=== PATIENT | male | born 1945 | race Caucasian/White ===

== ENCOUNTER 2016-08-27 22:49 | Observation (INO) | payer OTHER ==
--- NOTE | ~2016-08-27 | DS ---
Discharge Summary [facility] [address] [place]. [address] NAME: AN RAM : 43 STATUS : DIS IN PAT#: [id number] AGE: 71 ADM/REG DATE : 08/27/16 MR#: [id number] REPORT SERV DATE: 08/30/16 DICTATED BY: DATE: REPORT STATUS : Draft TRANSCRIBED BY: MODL DATE: 08/29/16 ADMISSION DATE: 08/27/2016 DISCHARGE DATE: 08/29/2016 The patient was admitted to the [facility]. ATTENDING DOCTOR: Dr. Lawrence Gautam and Dr. Gopi Yeung. DISCHARGE DIAGNOSES: 1. Functional abdominal pain. 2. Somatoform mood disorder. 3. Generalized anxiety disorder. 4. Chronic obstructive pulmonary disease - oxygen dependent at baseline. 5. Mild dementia. 6. History of hyponatremia due to SIADH and diuretic therapy - discharge sodium value 133. 7. Chronic kidney disease, stage II. 8. Obstructive sleep apnea and obesity hypoventilation syndrome. 9. Coronary artery disease. 10.History of atrial fibrillation with ablation and pacemaker. 11.History of prostate cancer with prior radiation. 12.Chronic thrombocytopenia - discharge platelet count 133. 13.Hypertension - controlled. 14.History of deep vein thrombosis on chronic anticoagulation. IMAGING STUDIES: Include a mesenteric Doppler 08/28 showing no Doppler evidence for significant stenosis of the celiac artery or superior mesenteric artery. Exam difficult due to the patient's inability to lay still, and obese habitus. Please also reference a [facility] records for additional GI imaging including CT abdomen and pelvis with no acute abnormalities, chest x-ray negative. Urinalysis negative. Troponin negative. Urine drug screen positive for barbiturates and opioids. Normal white blood cell count. Normal liver enzymes. Normal BNP. BRIEF HISTORY: For full details, please see the previously dictated history of present illness by Dr. Lawrence Gautam. Briefly, this is a 71-year-old white male with known chronic abdominal pain suspected due to somatoform disorder as he has had multiple GI evaluations in the past without specific etiology for his functional abdominal pain. He was seen at the [facility] Emergency Department on 08/28, complaining of severe abdominal pain, abdominal distention, bloating, loose stools for the past one to two weeks, relieved only by morphine, and the patient was transferred to [facility] for further inpatient evaluation. HOSPITAL COURSE: The patient's pain was easily relieved with IV pain medications. The only additional GI evaluation ordered here was a mesenteric Doppler ultrasound, which was negative for celiac stenosis. With improved pain control, the patient's other symptoms of nausea and vomiting resolved. He was not observed to have any emesis while here. Similarly was not observed to have any loose stools while here. When I saw the patient on the , he Discharge Summary [facility] [address] [facility] [address]. [place]. [address] NAME: AN RAM : 43 STATUS : DIS IN PAT#: [id number] AGE: 71 ADM/REG DATE : 08/27/16 MR#: [id number] REPORT SERV DATE: 08/30/16 DICTATED BY: DATE: REPORT STATUS : Draft TRANSCRIBED BY: MODAidan DATE: 08/29/16 reported feeling well with no abdominal pain and the ability to tolerate lunch. He was requesting to be discharged to home. This was despite also saying "I am falling to pieces little body", with a smile on his face. The patient's Lasix was held during the admission and he was fluid restricted with up trend in sodium from 129-133. He was asymptomatic from hyponatremia, and was requested that his Lasix be re-initiated for discharge. The rationale for folding it was reviewed with him, particularly that he also had no evidence of peripheral edema despite multiple complaints of thigh edema and abdominal wall edema (that were not present on examination). His Lasix will be re-initiated for home and he is to follow up with his outpatient primary care provider, Dr. Hernández, in [place], [place] within the week for a repeat basic metabolic panel. All of his other home medications were continued per prior regimen. He states that he has narcotics at home and did not request any additional for discharge. DISCHARGE DISPOSITION: To home in the care of his family with no specific activity or dietary restrictions aside from a cardiac diet for comorbidities. He states he already has home health and that will be resumed through his primary care provider. He should continue to use home oxygen per his prior requirements. He will need to follow up with his primary care provider within a week for a repeat basic metabolic panel and following of sodium. DISCHARGE MEDICATIONS: Include: 1. Eliquis 5 mg p.o. twice a day. 2. Carvedilol 12.5 mg p.o. twice a day. 3. Pepcid 20 mg p.o. daily. 4. Proscar 5 mg p.o. daily. 5. Luvox 50 mg p.o. daily. 6. Imdur 60 mg p.o. daily. 7. Cozaar 50 mg p.o. daily. 8. Zaroxolyn 5 mg p.o. daily. 9. Lasix 40 mg p.o. daily. 10.Protonix 40 mg p.o. daily. 11.MiraLAX one packet p.o. twice a day. 12.Simvastatin 40 mg p.o. at bedtime. 13.Flomax 0.4 mg p.o. daily. 14.Hydrocodone/acetaminophen 7.5/325 mg one tablet p.o. every eight hours as needed. 15.Potassium chloride 20 mEq p.o. three times a day. 16.Phenergan 25 mg p.o. every six hours as needed. 17.Ambien 10 mg p.o. at bedtime. 18.Klonopin 0.5 mg p.o. daily. 19.Bentyl 10 mg p.o. every six hours p.r.n. abdominal pain. 30 minutes was spent in completion of the discharge summary. Discharge Summary [address] [address] NAME: AN RAM : 43 STATUS : DIS IN PAT#: [id number] AGE: 71 ADM/REG DATE : 08/27/16 MR#: [id number] REPORT SERV DATE: 08/30/16 DICTATED BY: DATE: REPORT STATUS : Draft TRANSCRIBED BY: ALTON DATE: 08/29/16 NARESH/ALTON Gopi Yeung M.D. / [id number] CC: Tony Capone M.D.
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
[~2016-08-27 22:49] MED LIST: ACET500CAP PO; AMB10 PO; AMBIEN CR12.5 MG PO; B121000P IM; BENTYL10 PO; COREG12 PO; COUMADIN3 MG PO; COUMADIN4 MG PO; COZ50 PO; CYANO1000T PO; DEMA10T PO; DUONEB INH; DURA25 TOP; ELIQUIS 5 MG TAB5 MG PO; ENDOCET1 TA1 PO; ENDOCET1 TAB PO; FERROUS SULF325 M1 PO; FERROUS SULFATE PO; FISH-EPA1000 MG PO; FLOMAX4 PO; IMDUR60 PO; KLONO5 PO; KLOR-CON 1010 MEQ PO; KLOR-CON M2020 MEQ PO; L20 PO; L40 PO; LEVAQUIN5T PO; LEVSINTAB PO; LIBRAX PO; LUVOX100 PO; LUVOX50 PO; LYRICA75 PO; MAGOX4 PO; MIRALAXPKT PO; MYLICON 40 MG T40 MG PO; NEUR300 PO; NITROSTAT0.4 MG SL; NORCO1 TA2 PO; NORCO1 TAB PO; PEP20 PO; PR25 PO; PRADAXA150 MG PO; PROAIR HFA INH; PROSCAR5 PO; PROTONIX PO; REG PO; SENTAB PO; SUCR PO; V5 PO; VIT D; VITAMIN D31000 UNIT PO; VITAMIN D400 UNI1 PO; Vitamin B-Twelve IM; Z5 PO; ZOCOR40 PO
[2016-08-28] MEDS ORDERED: Z5 PO (03:27)
[2016-08-28] MEDS ORDERED: KLONO5 PO (03:30)
[2016-08-28] MEDS ORDERED: PEP20 PO (03:32)
[2016-08-28] MEDS ORDERED: BENTYL10 PO (03:36)
[2016-08-28 06:35] LABS: BASOPHILS 0.1 %; BASOPHILS ABSOLUTE 0.01 10/3/uL (0.0-0.16); EOSINOPHILS 1.5 %; EOSINOPHILS ABSOLUTE 0.11 10/3/uL (0.0-0.53); HEMATOCRIT 34.1 % (40.0-51.0); HEMOGLOBIN 12.1 g/dL (13.6-17.8); IMMATURE GRANULOCYTES 0.3 %; IMMATURE GRANULOCYTES ABSOLUTE 0.02 10/3/uL (0.0-0.11); LYMPHOCYTES 21.4 %; LYMPHOCYTES ABSOLUTE 1.54 10/3/uL (0.67-4.30); MANUAL DIFF NO %; MEAN CORPUS HGB CONC 35.5 g/dL (32.0-36.0); MEAN CORPUSCULAR HEMOGLOB 31.5 pg (26.0-34.0); MEAN CORPUSCULAR VOLUME 88.8 fL (80-100); MONOCYTES 8.3 %; NEUTROPHILS 68.4 %; NEUTROPHILS ABSOLUTE 4.91 10/3/uL (2.02-8.40); PLATELET COUNT 143 10/3/uL (150-400); RBC DISTRIBUTION WIDTH 12.6 % (12.0-16.0); RED CELL COUNT 3.84 10/6/uL (4.7-6.1); WHITE BLOOD CELLS 7.2 10/3/uL (4.5-10.5)
[2016-08-28 06:49] LABS: A/G RATIO 1.1 (0.7-1.9); ALBUMIN 3.4 G/DL (3.5-5.0); ALKALINE PHOSPHATASE 71 U/L (45-117); CALCIUM, SERUM 8.6 MG/DL (8.5-10.4); CO2 (CARBON DIOXIDE) 36 MMOL/L (24-34); CREATININE 1.22 MG/DL (0.70-1.30); GFR AFRICAN AMERICAN 68 ML/MIN (>=60); GFR NON AFRICAN AMERICAN 58 ML/MIN (>=60); GLOBULIN 3.1 G/DL (2.5-4.1); GLUCOSE, SERUM 105 MG/DL (60-99); POTASSIUM, SERUM 3.6 MMOL/L (3.5-5.3); SGOT(AST) 27 U/L (5-40); SGPT(ALT) 35 U/L (5-65); TOTAL BILIRUBIN 0.9 MG/DL (0-1.2); TOTAL PROTEIN 6.5 G/DL (6.0-8.5)
[2016-08-28 06:52] LABS: BUN (BLOOD UREA NITROGEN) 24 MG/DL (6-23); CHLORIDE, SERUM 85 MMOL/L (96-112); SODIUM, SERUM 130 MMOL/L (135-148)
[2016-08-28 11:38] LABS: BUN (BLOOD UREA NITROGEN) 25 MG/DL (6-23); CHLORIDE, SERUM 89 MMOL/L (96-112); CO2 (CARBON DIOXIDE) 34 MMOL/L (24-34); CREATININE 1.22 MG/DL (0.70-1.30); GFR AFRICAN AMERICAN 68 ML/MIN (>=60); GFR NON AFRICAN AMERICAN 58 ML/MIN (>=60); GLUCOSE, SERUM 113 MG/DL (60-99); POTASSIUM, SERUM 3.7 MMOL/L (3.5-5.3); SODIUM, SERUM 129 MMOL/L (135-148)
[2016-08-28 14:07] LABS: ASCORBIC ACID (UR NOT ORDER) NEG (NEG); BILIRUBIN, URINE NEGATIVE (NEG); KETONE, URINE NEGATIVE (NEG); LEUKOCYTE ESTERASE(NOT OR NEG (NEG); WBC (NOT ORDERED) (RFLEX) < 1 (0-5)
[2016-08-28 17:11] LABS: BUN (BLOOD UREA NITROGEN) 23 MG/DL (6-23); CHLORIDE, SERUM 89 MMOL/L (96-112); CO2 (CARBON DIOXIDE) 33 MMOL/L (24-34); CREATININE 1.17 MG/DL (0.70-1.30); GFR AFRICAN AMERICAN 71 ML/MIN (>=60); GFR NON AFRICAN AMERICAN 61 ML/MIN (>=60); GLUCOSE, SERUM 124 MG/DL (60-99); SODIUM, SERUM 130 MMOL/L (135-148)
[2016-08-28 23:24] LABS: BUN (BLOOD UREA NITROGEN) 24 MG/DL (6-23); CALCIUM, SERUM 8.6 MG/DL (8.5-10.4); CHLORIDE, SERUM 86 MMOL/L (96-112); CO2 (CARBON DIOXIDE) 37 MMOL/L (24-34); CREATININE 1.24 MG/DL (0.70-1.30); GFR AFRICAN AMERICAN 66 ML/MIN (>=60); GFR NON AFRICAN AMERICAN 57 ML/MIN (>=60); GLUCOSE, SERUM 101 MG/DL (60-99); POTASSIUM, SERUM 3.7 MMOL/L (3.5-5.3); SODIUM, SERUM 131 MMOL/L (135-148)
[2016-08-29 07:09] LABS: BASOPHILS 0.4 %; BASOPHILS ABSOLUTE 0.03 10/3/uL (0.0-0.16); EOSINOPHILS 0.9 %; EOSINOPHILS ABSOLUTE 0.06 10/3/uL (0.0-0.53); HEMATOCRIT 31.3 % (40.0-51.0); HEMOGLOBIN 10.9 g/dL (13.6-17.8); IMMATURE GRANULOCYTES 0.1 %; IMMATURE GRANULOCYTES ABSOLUTE 0.01 10/3/uL (0.0-0.11); LYMPHOCYTES 20.1 %; LYMPHOCYTES ABSOLUTE 1.35 10/3/uL (0.67-4.30); MEAN CORPUS HGB CONC 34.8 g/dL (32.0-36.0); MEAN CORPUSCULAR HEMOGLOB 30.8 pg (26.0-34.0); MEAN CORPUSCULAR VOLUME 88.4 fL (80-100); MEAN PLATELET VOLUME 8.8 fL (9.2-13.0); MONOCYTES 6.1 %; MONOCYTES ABSOLUTE 0.41 10/3/uL (0.21-1.20); NEUTROPHILS 72.4 %; NEUTROPHILS ABSOLUTE 4.86 10/3/uL (2.02-8.40); PLATELET COUNT 133 10/3/uL (150-400); RED CELL COUNT 3.54 10/6/uL (4.7-6.1); WHITE BLOOD CELLS 6.7 10/3/uL (4.5-10.5)
[2016-08-29 07:10] LABS: MANUAL DIFF NO %
[2016-08-29 07:21] LABS: BUN (BLOOD UREA NITROGEN) 24 MG/DL (6-23); CALCIUM, SERUM 8.6 MG/DL (8.5-10.4); CHLORIDE, SERUM 90 MMOL/L (96-112); CO2 (CARBON DIOXIDE) 34 MMOL/L (24-34); CREATININE 1.27 MG/DL (0.70-1.30); GFR AFRICAN AMERICAN 65 ML/MIN (>=60); GFR NON AFRICAN AMERICAN 56 ML/MIN (>=60); GLUCOSE, SERUM 127 MG/DL (60-99); POTASSIUM, SERUM 3.5 MMOL/L (3.5-5.3); SODIUM, SERUM 133 MMOL/L (135-148)
== END 2016-08-29 15:27 | disposition home or self-care (01) ==
LOC: 5SO 22:49
PROVIDERS: Internal Medicine; Student in an Organized Health Care Education/Training Program
DX: R10.9 Unspecified abdominal pain (principal); F45.9 Somatoform disorder, unspecified; R33.9 Retention of urine, unspecified; M54.9 Dorsalgia, unspecified; I12.9 Hypertensive chronic kidney disease with stage 1 through stage 4 chronic kidney disease, or unspecified chronic kidney disease; J44.9 Chronic obstructive pulmonary disease, unspecified; F41.1 Generalized anxiety disorder; F03.90 Unspecified dementia, unspecified severity, without behavioral disturbance, psychotic disturbance, mood disturbance, and anxiety; I25.10 Atherosclerotic heart disease of native coronary artery without angina pectoris; I48.91 Unspecified atrial fibrillation; D69.6 Thrombocytopenia, unspecified; N18.3 Chronic kidney disease, stage 3 (moderate); G47.33 Obstructive sleep apnea (adult) (pediatric); E87.1 Hypo-osmolality and hyponatremia; G89.29 Other chronic pain; Z99.89 Dependence on other enabling machines and devices; Z85.46 Personal history of malignant neoplasm of prostate; Z86.718 Personal history of other venous thrombosis and embolism; Z90.49 Acquired absence of other specified parts of digestive tract; Z98.890 Other specified postprocedural states; Z82.3 Family history of stroke; Z88.5 Allergy status to narcotic agent; Z88.8 Allergy status to other drugs, medicaments and biological substances; Z79.899 Other long term (current) drug therapy
CPT/HCPCS: 80048; 80053; 81001; 83605; 83735; 83880; 84100; 85025; 93005; 93975; 96374; 96375; 96376; A9270-GY; G0378; J2405; J2550

== ENCOUNTER 2016-09-07 17:03 | Observation (INO) | payer OTHER ==
--- NOTE | ~2016-09-07 | DS ---
Discharge Summary [facility] [address] [place]. [address] NAME: AN RAM : 43 STATUS : DIS Renée PAT#: [id number] AGE: 71 ADM/REG DATE : 09/07/16 MR#: [id number] REPORT SERV DATE: 09/09/16 DICTATED BY: JOHN EDWARDS DATE: 09/09/16 REPORT STATUS : Draft TRANSCRIBED BY: MODAidan DATE: 09/09/16 ADMISSION DATE: 09/07/2016 DISCHARGE DATE: 09/09/2016 DISCHARGE DIAGNOSES: 1. Chronic abdominal pain with irritable bowel syndrome. 2. History of somatoform-mood disorder and functional abdominal discomfort. 3. Diarrhea, resolved. 4. Chronic hyponatremia with a history of syndrome of inappropriate antidiuretic hormone, most recent sodium 129. 5. BPH and urinary retention, which has improved. 6. Hypothyroidism. Most recent TSH 2.230. 7. History of pacemaker, on chronic anticoagulation with Eliquis therapy. DISCHARGE MEDICATIONS: Eliquis 5 mg p.o. twice a day, carvedilol 12.5 mg p.o. twice a day, Bentyl 20 mg p.o. with meals, prescription was written for this. Proscar 5 mg daily, Luvox 50 mg three times a day, Lasix 40 mg daily, Imdur ER 60 mg daily, Cozaar 50 mg daily, Zocor 40 mg at bedtime, Flomax 0.4 mg daily, Ambien 10 mg at bedtime, potassium chloride 20 mEq twice a day. I have instructed him to stop his Zaroxolyn as it could be contributing further to his chronic hyponatremia. HISTORY OF PRESENT ILLNESS: This is a pleasant 71-year-old white male who presented with abdominal pain and diarrhea to [facility] Emergency Room. Please see initial H and P of Dr. Hema Cuevas. This patient was admitted to the Hospitalist Service for further evaluation and treatment. CONSULTANTS DURING THIS ADMISSION: 1. [facility]. 2. TOPHER Calabrese. 3. Jason Garcia M.D. PROCEDURES AND IMAGING DURING THIS ADMISSION: A CT of the abdomen and pelvis showing no acute abnormality within the abdomen or pelvis; diverticulosis, but no diverticulitis. A renal ultrasound showed minimal right renal cyst, but otherwise negative ultrasound exam of the kidneys. CONTINUATION OF HOSPITAL COURSE: The patient was seen by [facility], but they did not recommend any further procedures during this admission. Added Bentyl to his regimen, as the patient had been Levsin in the past and had not seen any improvement with that. He exhibited some signs of urinary retention, but on postvoid residual bladder scans, he has not exhibited any high residuals. Also, Urology had been consulted for evaluation of this and a PSA test was added to his lab work which came back at less than 0.05. In further discussion with the patient, he relates that once he stopped his hydrocodone, he felt like his symptoms improved rapidly and he was able to urinate freely and also his abdominal pain was significantly better. He has had a formed stool and is voiding freely in his urinal and is wishing to be discharged home. Discharge Summary [address] [address] NAME: AN RAM : 43 STATUS : DIS Renée PAT#: [id number] AGE: 71 ADM/REG DATE : 09/07/16 MR#: [id number] REPORT SERV DATE: 09/09/16 DICTATED BY: JOHN EDWARDS DATE: 09/09/16 REPORT STATUS : Draft TRANSCRIBED BY: MODL DATE: 09/09/16 DISCHARGE INSTRUCTIONS: He has followup scheduled with a new primary care, Dr. Smallwood on 09/26/2016, which I have instructed him to keep. He will follow up with [facility] in three to four weeks. He has a prescription written for Bentyl with meals. I have also instructed him to apply CARRIE hose to his lower extremities, as he does have edema and this would help to facilitate removal of the extra fluid. Questions were answered at bedside with he and his . He is agreement with this plan going forward. Please note greater than 30 minutes were spent on this discharge for medication teaching, followup planning, and further disposition. TRINY/MODL John Edwards NP / [id number] CC: MD Jewel Van II, M.D.
--- NOTE | ~2016-09-07 | CN ---
Consultation Report [facility] [address] [place]. [address] NAME: AN RAM : 43 STATUS : DIS Renée PAT#: [id number] AGE: 71 ADM/REG DATE : 09/07/16 MR#: [id number] REPORT SERV DATE: 09/10/16 DICTATED BY: Yina GRANGER DATE: 09/10/16 REPORT STATUS : Draft TRANSCRIBED BY: MODL DATE: 09/10/16 CONSULTATION NOTE DATE OF CONSULTATION: 09/09/2016 CHIEF COMPLAINT: Incomplete bladder emptying? with a history of prostate cancer. HISTORY OF PRESENT ILLNESS: Mr. Ram is a 71-year-old white male, who was admitted on 09/07/2016 with apparent history of chronic abdominal pain and new diarrhea. He was found to have an elevated PVR of several 100 mL that he believes induced by narcotics that had been given to him for this chronic pain. He states that since he stopped the narcotics he is better. His creatinine was 1.52. He has a history of prostate cancer treated with external-beam radiation and apparently sees Dr. Valverde in followup for that. During this admission, he was intermittently cathed for several elevated volumes, none of which were recorded, and he is seen on finasteride and tamsulosin. He states that he is doing well now. Last PSA detectable in the computer was less than 0.05 on 08/24/2015. PAST MEDICAL HISTORY: 1. Congestive heart failure. 2. COPD. 3. CAD, status post stents. 4. Dysrhythmia, status post pacemaker. 5. Peptic ulcer disease. 6. Irritable bowel syndrome and colonic angiodysplasia. 7. Chronic abdominal pain of unknown etiology. 8. History of prostate cancer in the past treated with external beam radiation. Exact time frame unknown. 9. Depression and anxiety. 10.Obstructive sleep apnea. 11.Atrial fibrillation. 12.Hypertension. 13.Perioperative DVT. PAST SURGICAL HISTORY: 1. Pacemaker placement. 2. IVC filter placement. 3. Left thumb surgery. 4. Small bowel obstruction. 5. Left knee surgery. 6. Cholecystectomy. 7. Cardiac ablation. CURRENT MEDICATIONS: Apixaban, Carvedilol, dicyclomine, finasteride, fluvoxamine, furosemide, isosorbide, losartan, simvastatin, tamsulosin, zolpidem. Consultation Report [facility] [address] [place]. [address] NAME: AN RAM : 43 STATUS : DIS Renée PAT#: [id number] AGE: 71 ADM/REG DATE : 09/07/16 MR#: [id number] REPORT SERV DATE: 09/10/16 DICTATED BY: Yina GRANGER DATE: 09/10/16 REPORT STATUS : Draft TRANSCRIBED BY: ALTON DATE: 09/10/16 ALLERGIES: CODEINE, CLONAZEPAM, LEVAQUIN. SOCIAL HISTORY: The patient is a previous smoker. Chews tobacco. Denies significant alcohol use. FAMILY HISTORY: Negative for urologic disease except for a sibling with kidney cancer. PHYSICAL EXAMINATION: GENERAL: An obese, 71-year-old white male, alert and oriented x3. VITAL SIGNS: Afebrile with normal vital signs. HEENT: Normocephalic, atraumatic. No respiratory distress. ABDOMEN: Protuberant, nontender, nondistended. No suprapubic distention. No CVA tenderness. : Normal external genitalia. Prostate exam not performed. LOWER EXTREMITIES: Showed minimal pitting edema. PERTINENT LABORATORY: Noted creatinine 1.52. IMPRESSION: 1. History of prostate cancer, status post external-beam radiation therapy. 2. History of elevated postvoid residual, possibly resolved post narcotic cessation. 3. Benign prostatic hypertrophy/bladder obstruction, managed with finasteride and tamsulosin. PLAN: 1. The patient's was to be discharged, so I had him checked a PSA that was less than 0.05 on 09/09/2016. 2. We also checked a postvoid residual which was acceptable at 116 mL. I am happy to see him in followup if necessary. Otherwise, he can see his urologist or the urologist of his choice. YONI/ALTON Yina Granger M.D. / [id number] CC: MD Jewel Van II, M.D.
--- NOTE | ~2016-09-07 | CN ---
Consultation Report [facility] [address] [place]. [address] NAME: AN RAM : 43 STATUS : ADM Renée PAT#: [id number] AGE: 71 ADM/REG DATE : 09/07/16 MR#: [id number] REPORT SERV DATE: 09/08/16 DICTATED BY: ISIDRA NGUYEN DATE: 09/08/16 REPORT STATUS : Draft TRANSCRIBED BY: MODAidan DATE: 09/08/16 GI CONSULTATION DATE OF CONSULTATION: 09/08/2016 REASON FOR CONSULTATION: Evaluation and management of irritable bowel syndrome, acute on chronic abdominal pain. HISTORY OF PRESENT ILLNESS: Mr. Ram is a 71-year-old male patient, who is known to Dr. Jason Garcia in the outpatient setting, who presented with the chief complaint of IBS, diarrhea on the . He has had a recent hospitalization on August 28, 2016 to August 29 for abdominal pain. We last saw him in the hospital on July of 2015 for acute on chronic abdominal pain. At that time, his complaints were suprapubic in nature with radiation to the groin and testicles with difficulty voiding. He tells me that this time, he has again had difficulty with voiding secondary to utilization of Lortab. He had become constipated he states and drank an excessive amount of prune juice the day prior to coming in, thus causing excessive diarrhea. Secondary to those complaints, he came into the hospital, was seen by Dr. Cuevas in the emergency room, and subsequently was admitted. He also carries a history of a diagnosis of somatoform mood disorder. He was hyponatremic when he came in. He has had some mild nausea, but no vomiting. He presently has had no more diarrhea since coming in. He states that his abdominal pain has improved. He has chronic dyspnea on exertion with chronic O2 usage. He has had multiple hospitalizations for the same complaints. He has had a very thorough GI workup. He has had two negative mesenteric ultrasounds. He has had a CT scan that was negative. He has had an EGD that was done on 08/21/2015, normal duodenum, normal antrum. He had a very small amount of food residue in his stomach and a hiatal hernia. His last colonoscopy was September 14, 2014. With findings on that exam, normal ileum, two polyps were removed and he had internal hemorrhoids. Presently, the patient is comfortable. He has no complaints of abdominal pain at this time at all. He states that he ate this morning and tolerated it well. I have discussed with him he has been trialed on Levsin before for his irritable bowel syndrome and did not do well on that. We will switch him to Bentyl and see if that gives him any relief. PAST MEDICAL HISTORY: Positive for acute on chronic abdominal pain with negative workup, positive for atrial fibrillation, pacemaker placement, coronary artery disease, status post stenting, gastric ulcer, CHF, IBS, insomnia, chronic pain, prostate cancer status post radiation, anemia, diabetes, B12 deficiency, chronic low back pain, small-bowel obstruction, anxiety, depression, and COPD with O2 dependence. PAST SURGICAL HISTORY: Cholecystectomy, pacemaker, cardiac stents, small-bowel resection, and left total knee replacement. FAMILY HISTORY: Father with history of colon cancer. SOCIAL HISTORY: , retired gasoline truck operator. Past use of cigarettes. No alcohol or Consultation Report [address] [address] NAME: AN RAM : 43 STATUS : ADM Renée PAT#: [id number] AGE: 71 ADM/REG DATE : 09/07/16 MR#: [id number] REPORT SERV DATE: 09/08/16 DICTATED BY: ISIDRA NGUYEN DATE: 09/08/16 REPORT STATUS : Draft TRANSCRIBED BY: ALTON DATE: 09/08/16 illicits. ALLERGIES: CODEINE, CLONAZEPAM, AND LEVAQUIN. HOME MEDICATIONS: Eliquis, Coreg, Proscar, Librax, Lasix, Hampton, Imdur, Cozaar, Zaroxolyn, potassium, Zocor, Flomax, and Ambien. REVIEW OF SYSTEMS: A ten-point review of systems obtained. Pertinent positives addressed in the history of present illness. PHYSICAL EXAMINATION: VITAL SIGNS: Temperature is 97.8, pulse 70, respirations of 18, and blood pressure 100/57. NEURO: Reveals an alert, male, sitting up in the chair with no focal deficits. GENERAL: Cooperative, in no apparent distress. Awake, alert, and oriented x3. HEAD, EARS, EYES, NOSE, AND THROAT: Anicteric. Pupils are equal, round, and reactive to light and accommodation. Normocephalic and atraumatic. NECK: No JVD. No palpable nodes. LUNGS: Diminished throughout. Normal respiratory effort exhibited. Chronic O2 at 2 L. CARDIOVASCULAR SYSTEM: Presently regular rate and rhythm. ABDOMEN: Soft, round, obese. No tenderness to palpation elicited on exam. He has no organomegaly. Active bowel sounds in all four quadrants. SKIN: Warm, dry, and intact. PERTINENT LABORATORY DATA: Sodium is 128, potassium 4.1. BUN is 26 and creatinine 1.3. White count is 6.2, hemoglobin 11.1, hematocrit 31.3, and platelet count is 149. INR is 1.3. BNP is 82. TSH is 2.230. ASSESSMENT: 1. Acute on chronic abdominal pain with a history of irritable bowel syndrome, mainly constipation type. 2. Diarrhea, which was self-induced with prune juice, excessive intake. 3. Chronic kidney disease. 4. Urinary retention with history of prostate cancer. 5. Chronic obstructive pulmonary disease with chronic O2 dependence. PLAN: At present, no plans for any further GI workup. We would recommend either Librax or Bentyl as he has been on Levsin with zero results and improvement in his abdominal complaints. He relates majority of his problem is secondary to Lortab causing urinary retention and then pain, as well as constipation. He can follow with Dr. Garcia or nurse practitioner, Yaa Childers in two to four weeks for further evaluation. DG/MODL Consultation Report [address] [place]. [address] NAME: AN RAM : 43 STATUS : ADM Renée PAT#: [id number] AGE: 71 ADM/REG DATE : 09/07/16 MR#: [id number] REPORT SERV DATE: 09/08/16 DICTATED BY: ISIDRA NGUYEN DATE: 09/08/16 REPORT STATUS : Draft TRANSCRIBED BY: ALTON DATE: 09/08/16 TOPHER Calabrese / [id number] CC: Yunior Vazquez Jr, MD Jung Park, M.D.
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
[2016-09-07 16:55] LABS: BASOPHILS 0.2 %; BASOPHILS ABSOLUTE 0.01 10/3/uL (0.0-0.16); EOSINOPHILS ABSOLUTE 0.06 10/3/uL (0.0-0.53); ER CBC TAT 0 Hrs 11 Mins; HEMATOCRIT 31.2 % (40.0-51.0); HEMOGLOBIN 11.2 g/dL (13.6-17.8); LYMPHOCYTES 12.1 %; LYMPHOCYTES ABSOLUTE 0.75 10/3/uL (0.67-4.30); MANUAL DIFF NO %; MEAN CORPUS HGB CONC 35.9 g/dL (32.0-36.0); MEAN CORPUSCULAR HEMOGLOB 31.4 pg (26.0-34.0); MEAN CORPUSCULAR VOLUME 87.4 fL (80-100); MEAN PLATELET VOLUME 8.6 fL (9.2-13.0); MONOCYTES 14.2 %; MONOCYTES ABSOLUTE 0.88 10/3/uL (0.21-1.20); NEUTROPHILS 72.5 %; NEUTROPHILS ABSOLUTE 4.51 10/3/uL (2.02-8.40); PLATELET COUNT 141 10/3/uL (150-400); RBC DISTRIBUTION WIDTH 12.7 % (12.0-16.0); RED CELL COUNT 3.57 10/6/uL (4.7-6.1); WHITE BLOOD CELLS 6.2 10/3/uL (4.5-10.5)
[2016-09-07 17:01] LABS: INTERNATIONAL NORMAL RATI 1.2 UNITS (-); PROTIME (NOT ORD) 15.3 SEC (12.0-14.5)
[2016-09-07 17:02] LABS: PARTIAL THROMBO TIME 33.9 SEC (22.5-37.2)
[2016-09-07 17:07] LABS: ASCORBIC ACID (UR NOT ORDER) NEG (NEG); BILIRUBIN, URINE NEGATIVE (NEG); ER URINALYSIS TAT 0 Hrs 09 Mins; KETONE, URINE NEGATIVE (NEG); LEUKOCYTE ESTERASE(NOT OR NEG (NEG); NITRITE (URINE) NEG (NEG); WBC (NOT ORDERED) (RFLEX) 1 (0-5)
[2016-09-07 17:10] LABS: ALBUMIN 3.7 G/DL (3.5-5.0); ALKALINE PHOSPHATASE 75 U/L (45-117); BUN (BLOOD UREA NITROGEN) 24 MG/DL (6-23); CALCIUM, SERUM 8.6 MG/DL (8.5-10.4); CHEST PAIN PROFILE TAT 0 Hrs 26 Mins; CHLORIDE, SERUM 82 MMOL/L (96-112); CO2 (CARBON DIOXIDE) 34 MMOL/L (24-34); CREATININE 1.22 MG/DL (0.70-1.30); DIRECT BILIRUBIN 0.2 MG/DL (0.0-0.4); GFR AFRICAN AMERICAN 68 ML/MIN (>=60); GFR NON AFRICAN AMERICAN 58 ML/MIN (>=60); GLUCOSE, SERUM 112 MG/DL (60-99); INDIRECT BILIRUBIN(NOT ORDER) 0.3 MG/DL (0.1-0.9); POTASSIUM, SERUM 4.1 MMOL/L (3.5-5.3); SGOT(AST) 28 U/L (5-40); SGPT(ALT) 35 U/L (5-65); SODIUM, SERUM 126 MMOL/L (135-148); TOTAL BILIRUBIN 0.5 MG/DL (0-1.2); TOTAL PROTEIN 6.5 G/DL (6.0-8.5); TROPONIN I <0.02 NG/ML (<0.05)
[2016-09-08 04:28] LABS: BASOPHILS 0.2 %; BASOPHILS ABSOLUTE 0.01 10/3/uL (0.0-0.16); EOSINOPHILS 1.3 %; EOSINOPHILS ABSOLUTE 0.08 10/3/uL (0.0-0.53); HEMATOCRIT 31.3 % (40.0-51.0); HEMOGLOBIN 11.1 g/dL (13.6-17.8); IMMATURE GRANULOCYTES 0.2 %; IMMATURE GRANULOCYTES ABSOLUTE 0.01 10/3/uL (0.0-0.11); LYMPHOCYTES 16.9 %; LYMPHOCYTES ABSOLUTE 1.05 10/3/uL (0.67-4.30); MEAN CORPUS HGB CONC 35.5 g/dL (32.0-36.0); MEAN CORPUSCULAR HEMOGLOB 31.4 pg (26.0-34.0); MEAN CORPUSCULAR VOLUME 88.7 fL (80-100); MEAN PLATELET VOLUME 8.6 fL (9.2-13.0); MONOCYTES 10.6 %; MONOCYTES ABSOLUTE 0.66 10/3/uL (0.21-1.20); NEUTROPHILS 70.8 %; NEUTROPHILS ABSOLUTE 4.42 10/3/uL (2.02-8.40); PLATELET COUNT 149 10/3/uL (150-400); RBC DISTRIBUTION WIDTH 12.9 % (12.0-16.0); RED CELL COUNT 3.53 10/6/uL (4.7-6.1); WHITE BLOOD CELLS 6.2 10/3/uL (4.5-10.5)
[2016-09-08 04:29] LABS: MANUAL DIFF NO %
[2016-09-08 04:33] LABS: INTERNATIONAL NORMAL RATI 1.3 UNITS (-); PARTIAL THROMBO TIME 33.8 SEC (22.5-37.2); PROTIME (NOT ORD) 15.8 SEC (12.0-14.5)
[2016-09-08 04:48] LABS: A/G RATIO 1.2 (0.7-1.9); ALBUMIN 3.5 G/DL (3.5-5.0); ALKALINE PHOSPHATASE 76 U/L (45-117); BUN (BLOOD UREA NITROGEN) 26 MG/DL (6-23); CALCIUM, SERUM 8.9 MG/DL (8.5-10.4); CHLORIDE, SERUM 85 MMOL/L (96-112); CO2 (CARBON DIOXIDE) 36 MMOL/L (24-34); GFR AFRICAN AMERICAN 63 ML/MIN (>=60); GFR NON AFRICAN AMERICAN 54 ML/MIN (>=60); GLUCOSE, SERUM 103 MG/DL (60-99); POTASSIUM, SERUM 4.1 MMOL/L (3.5-5.3); SGOT(AST) 27 U/L (5-40); SGPT(ALT) 32 U/L (5-65); SODIUM, SERUM 128 MMOL/L (135-148); TOTAL BILIRUBIN 0.6 MG/DL (0-1.2); TOTAL PROTEIN 6.5 G/DL (6.0-8.5)
[2016-09-09 04:54] LABS: CALCIUM, SERUM 9.2 MG/DL (8.5-10.4); CHLORIDE, SERUM 81 MMOL/L (96-112); CO2 (CARBON DIOXIDE) 37 MMOL/L (24-34); CREATININE 1.52 MG/DL (0.70-1.30); GFR AFRICAN AMERICAN 52 ML/MIN (>=60); GFR NON AFRICAN AMERICAN 45 ML/MIN (>=60); POTASSIUM, SERUM 3.4 MMOL/L (3.5-5.3); SODIUM, SERUM 129 MMOL/L (135-148)
[2016-09-09 04:55] LABS: BUN (BLOOD UREA NITROGEN) 34 MG/DL (6-23); GLUCOSE, SERUM 126 MG/DL (60-99)
[2016-09-09 11:20] LABS: PROSTATIC SPECIFIC AG < 0.05 NG/ML (0.0-6.5)
[2016-09-09] MEDS ORDERED: BENTYL20 PO (16:51)
== END 2016-09-09 17:11 | disposition home or self-care (01) ==
LOC: ER 17:03 → CDU1 20:07
PROVIDERS: Emergency Medicine; Hospitalist; Internal Medicine
DX: K58.9 Irritable bowel syndrome, unspecified (principal); F45.9 Somatoform disorder, unspecified; R19.7 Diarrhea, unspecified; E22.2 Syndrome of inappropriate secretion of antidiuretic hormone; F17.290 Nicotine dependence, other tobacco product, uncomplicated; N40.1 Benign prostatic hyperplasia with lower urinary tract symptoms; R33.8 Other retention of urine; Z79.01 Long term (current) use of anticoagulants; I11.0 Hypertensive heart disease with heart failure; I50.30 Unspecified diastolic (congestive) heart failure; Z95.0 Presence of cardiac pacemaker; Z85.46 Personal history of malignant neoplasm of prostate; F41.9 Anxiety disorder, unspecified; F32.9 Major depressive disorder, single episode, unspecified; G47.33 Obstructive sleep apnea (adult) (pediatric); I48.91 Unspecified atrial fibrillation; Z90.49 Acquired absence of other specified parts of digestive tract; Z88.5 Allergy status to narcotic agent; Z88.8 Allergy status to other drugs, medicaments and biological substances; Z98.890 Other specified postprocedural states; Z79.899 Other long term (current) drug therapy
CPT/HCPCS: 74176; 76775; 80048; 80053; 80076; 81001; 83605; 83690; 83735; 83880; 84153; 84443; 84484; 85025; 85610; 85730; 96374; 96375; 96376; 99285; A9270-GY; G0378; J1980

== ENCOUNTER 2016-10-10 21:07 | Emergency (ER) | payer OTHER ==
[2016-10-10 20:03] LABS: BASOPHILS 0.3 %; BASOPHILS ABSOLUTE 0.02 10/3/uL (0.0-0.16); EOSINOPHILS 1.4 %; HEMATOCRIT 31.2 % (40.0-51.0); HEMOGLOBIN 11.2 g/dL (13.6-17.8); LYMPHOCYTES 9.1 %; LYMPHOCYTES ABSOLUTE 0.66 10/3/uL (0.67-4.30); MANUAL DIFF NO %; MEAN CORPUS HGB CONC 35.9 g/dL (32.0-36.0); MEAN CORPUSCULAR HEMOGLOB 31.5 pg (26.0-34.0); MEAN CORPUSCULAR VOLUME 87.9 fL (80-100); MEAN PLATELET VOLUME 8.4 fL (9.2-13.0); MONOCYTES 11.2 %; MONOCYTES ABSOLUTE 0.82 10/3/uL (0.21-1.20); NEUTROPHILS ABSOLUTE 5.69 10/3/uL (2.02-8.40); PLATELET COUNT 163 10/3/uL (150-400); RBC DISTRIBUTION WIDTH 12.4 % (12.0-16.0); RED CELL COUNT 3.55 10/6/uL (4.7-6.1); WHITE BLOOD CELLS 7.3 10/3/uL (4.5-10.5)
[2016-10-10 20:06] LABS: ASCORBIC ACID (UR NOT ORDER) NEG (NEG); BILIRUBIN, URINE NEGATIVE (NEG); ER URINALYSIS TAT 0 Hrs 09 Mins; KETONE, URINE NEGATIVE (NEG); LEUKOCYTE ESTERASE(NOT OR NEG (NEG); NITRITE (URINE) NEG (NEG); WBC (NOT ORDERED) (RFLEX) < 1 (0-5)
[2016-10-10 20:20] LABS: A/G RATIO 1.3 (0.7-1.9); ALBUMIN 3.9 G/DL (3.5-5.0); ALKALINE PHOSPHATASE 78 U/L (45-117); CALCIUM, SERUM 9.4 MG/DL (8.5-10.4); CHLORIDE, SERUM 85 MMOL/L (96-112); CO2 (CARBON DIOXIDE) 36 MMOL/L (24-34); CREATININE 1.25 MG/DL (0.70-1.30); GFR AFRICAN AMERICAN 66 ML/MIN (>=60); GFR NON AFRICAN AMERICAN 57 ML/MIN (>=60); GLOBULIN 3.1 G/DL (2.5-4.1); GLUCOSE, SERUM 112 MG/DL (60-99); POTASSIUM, SERUM 3.9 MMOL/L (3.5-5.3); SGOT(AST) 27 U/L (5-40); SGPT(ALT) 26 U/L (5-65); SODIUM, SERUM 128 MMOL/L (135-148)
[2016-10-10 20:21] LABS: BUN (BLOOD UREA NITROGEN) 19 MG/DL (6-23)
[~2016-10-10 21:07] MED LIST changes: +BENTYL20 PO
== END 2016-10-10 23:38 | disposition home or self-care (01) ==
LOC: ER 21:07
PROVIDERS: Nurse Practitioner Acute Care
DX: R10.9 Unspecified abdominal pain (principal); E87.1 Hypo-osmolality and hyponatremia; J44.9 Chronic obstructive pulmonary disease, unspecified; I11.0 Hypertensive heart disease with heart failure; I50.9 Heart failure, unspecified; K58.9 Irritable bowel syndrome, unspecified; F32.9 Major depressive disorder, single episode, unspecified; F41.9 Anxiety disorder, unspecified; I48.91 Unspecified atrial fibrillation; Z95.5 Presence of coronary angioplasty implant and graft; Z85.46 Personal history of malignant neoplasm of prostate; Z87.891 Personal history of nicotine dependence; Z88.5 Allergy status to narcotic agent; Z88.1 Allergy status to other antibiotic agents; Z79.899 Other long term (current) drug therapy
CPT/HCPCS: 74176; 80053; 81001; 82150; 83605; 83690; 85025; 96374; 99284; J1200; J1980; J2765